=== PATIENT | female | born 1965 | race Two or more races ===

== ENCOUNTER → 2018-09-10 | Emergency (ER) | payer OTHER ==
[~2018-09-10] VITALS: Ht 152.4 cm; Wt 63.5 kg
[~2018-09-10] MED LIST: AMOXICILLIN500 MG; CLONAZEPAM1 MG; LAMICTAL200 M1; PRILOSEC OTC20 MG; TRAZODONE HCL150 MG; VISTARIL50 MG PO; WELLBUTRIN XL150 M1; XANAX0.25 MG PO
== END | disposition home or self-care (01) ==
LOC: ER 01:30
DX: R09.81 Nasal congestion (principal); F41.0 Panic disorder [episodic paroxysmal anxiety]